=== PATIENT | female | born 1965 | race African-American/Black ===

== ENCOUNTER 2018-06-18 00:05 | Inpatient (IN) | payer OTHER ==
[~2018-06-18] VITALS: Ht 162.6 cm; Wt 133.4 kg
[2018-06-18 00:45] LABS: BASOPHILS # (AUTO) 0.1 (0.0-0.1); BASOPHILS % 0.5 % (0.0-1.0); EOSINOPHILS # (AUTO) 0.1 (0.0-0.4); EOSINOPHILS % 1.1 % (0.0-6.0); LYMPHOCYTES % 17.4 % (18.0-39.1); MEAN CORPUSCULAR HEMOGLOBIN 26.4 pg (28-32); MEAN CORPUSCULAR HGB CONC 31.7 g/dL (31-35); MEAN CORPUSCULAR VOLUME 83.3 fL (81-99); MONOCYTES # (AUTO) 0.6 (0.2-0.8); MONOCYTES % 5.6 % (4.4-11.3); NEUTROPHILS # (AUTO) 8.5 (2.1-6.9); PLATELET COUNT 245 x10e3/uL (140-360); RED BLOOD COUNT 4.92 x10e6/uL (3.6-5.1); RED CELL DISTRIBUTION WIDTH 14.4 % (11.7-14.4)
[2018-06-18] MEDS ORDERED: DICYCLOMINE HCL 20 MG/2 ML VIAL IM ONE (00:45)
[2018-06-18 00:54] LABS: BILIRUBIN,URINE NEGATIVE (NEGATIVE); CLARITY,URINE CLEAR (CLEAR); COLOR,URINE YELLOW (YELLOW); KETONES,URINE NEGATIVE (NEGATIVE); LEUKOCYTE ESTERASE ,URINE NEGATIVE (NEGATIVE); NITRITE,URINE NEGATIVE (NEGATIVE); PROTEIN,URINE DIPSTICK TRACE (NEGATIVE); URINE UROBILINOGEN 4 mg/dL (0.2 - 1)
[2018-06-18] MEDS ORDERED: DIAZEPAM5 MG PO (00:55)
[2018-06-18] MEDS ORDERED: NAPROXEN500 MG PO (00:55)
[2018-06-18] MEDS ORDERED: DESONIDE15 GM TOP (00:55)
[2018-06-18] MEDS ORDERED: ASPIR 8181 MG PO (00:55)
[2018-06-18] MEDS ORDERED: LOSARTAN-HCTZ1 EACH PO (00:55)
[2018-06-18] MEDS ORDERED: MOMETASONE FURO15 G1 PO (00:55)
[2018-06-18] MEDS ORDERED: JENTADUETO 2.51 EACH PO (00:55)
[2018-06-18] MEDS ORDERED: BENADRYL25 M1 PO (00:55)
[2018-06-18 01:00] LABS: WBC,URINE (MAN) 0-5 /HPF (0-5)
[2018-06-18 01:01] LABS: BACTERIA,URINE MODERATE /HPF; EPITHELIAL CELLS,URINE FEW /LPF
[2018-06-18] MEDS ORDERED: ONDANSETRON HCL INJ 2MG/ML 2ML 2 MG/ML VIAL ONE (01:04)
[2018-06-18 01:15] LABS: ALANINE AMINOTRANSFERASE 204 IU/L (0-55); ALBUMIN 3.5 g/dL (3.5-5.0); ALBUMIN/GLOBULIN RATIO 0.9 (0.8-2.0); ALKALINE PHOSPHATASE 336 IU/L (40-150); ANION GAP 14.6 mmol/L (8-16); BLOOD UREA NITROGEN 11 mg/dL (7-26); BUN/CREATININE RATIO 12 (6-25); CALCIUM 9.6 mg/dL (8.4-10.2); CARBON DIOXIDE 25 mmol/L (22-29); CHLORIDE 97 mmol/L (98-107); EST GLOMERULAR FILTRATION RATE > 60 ML/MIN (60-); GLUCOSE 373 mg/dL (74-118); POTASSIUM 5.6 mmol/L (3.5-5.1); SODIUM 131 mmol/L (136-145)
[2018-06-18] MEDS ORDERED: ONDANSETRON HCL INJ 2MG/ML 2ML 2 MG/ML VIAL IV STA (01:27)
[2018-06-18] MEDS ORDERED: SODIUM CHLORIDE 0.9% 1000ML 1,000 ML IV SCH ×2 (01:45→04:31)
[2018-06-18] MEDS ORDERED: INSULIN REGULAR, HUMAN 100 UNIT/1 ML 3ML VIAL IV ONE (01:45)
[2018-06-18] MEDS ORDERED: SOD POLYSTYRENE SULFONATE SUSP 15 GM/60 ML BTL PO ONE (01:45)
[2018-06-18] MEDS ORDERED: SODIUM CHLORIDE 0.9% 50ML 50 ML ONE (01:52)
[2018-06-18] MEDS ORDERED: IOPAMIDOL 370 MG/ML 200 ML INFUS..BTL INJ ONE (01:52)
--- NOTE | 2018-06-18 04:16 | Diagnostic Imaging Report ---
EXAM: CT Abdomen and Pelvis WITH contrast INDICATION: RUQ PAIN, N/V COMPARISON: None. TECHNIQUE: Abdomen and pelvis were scanned utilizing a multidetector helical scanner from the lung base to the pubic symphysis after administration of IV contrast. Coronal and sagittal reformations were obtained. Routine protocol was performed. Scan was performed when during portal venous phase. IV CONTRAST: 100 mL of Isovue-370 ORAL CONTRAST: Water COMPLICATIONS: None RADIATION DOSE: Total DLP: 851.4 mGy*cm Estimated effective dose: (DLP x 0.015 x size factor) mSv Dose modulation, iterative reconstruction, and/or weight based adjustment of the mA/kV was utilized to reduce the radiation dose to as low as reasonably achievable. FINDINGS: LINES and TUBES: None. LOWER THORAX: Unremarkable HEPATOBILIARY: No focal hepatic lesions. No biliary ductal dilation. GALLBLADDER: There are stones in the gallbladder. Possible wall thickening in the proximal body and neck versus lamellated stones. SPLEEN: No splenomegaly. PANCREAS: No focal masses or ductal dilatation. ADRENALS: No adrenal nodules KIDNEYS/URETERS: Kidneys enhance symmetrically. No hydronephrosis. No cystic or solid mass lesions. No stones. GI TRACT: No abnormal distention, wall thickening, or evidence of bowel obstruction. Appendix is normal. PELVIC ORGANS/BLADDER: Unremarkable. LYMPH NODES: No lymphadenopathy. VESSELS: There is mild atherosclerotic disease in the aorta and major arterial branches. PERITONEUM / RETROPERITONEUM: No free air or fluid. BONES: Unremarkable. SOFT TISSUES: Unremarkable. IMPRESSION: 1. Cholelithiasis with possible wall thickening. Given right upper quadrant pain, ultrasound can be obtained for further evaluation. 2. Otherwise, no acute abnormalities. Signed by: DR. Darnell Rincon MD on 06/18/2018 4:13 AM
[2018-06-18] MEDS ORDERED: CEFTRIAXONE SOD 1 GM/NS 50 ML 50 ML IV ONE (04:30)
[2018-06-18 04:43] LABS: AMYLASE 686 U/L (25-125)
[2018-06-18] MEDS ORDERED: SODIUM CHLORIDE 0.9% 1000ML 1,000 ML IV ONE (04:45)
[2018-06-18 04:49] LABS: LIPASE 1893 U/L (8-78)
--- OUTSIDE RECORDS SUMMARY | 2018-06-18 05:58 | XMS REPORT ---
[facility] Address Unknown Phone Unavailable Care Team Providers Care Hone Operator Name Role Phone Abiola GUZMAN Unavailable Unavailable Problems This patient has no known problems. Allergies, Adverse Reactions, Alerts This patient has no known allergies or adverse reactions. Medications This patient has no known medications. Encounters Start Date/Time End Date/Time Encounter Type Admission Type Attending [facility] Care Department Encounter ID 2017-12-14 00:00:00 2017-12-14 00:00:00 Outpatient [facility] [id number] 2017-12-07 00:00:00 2017-12-07 00:00:00 Outpatient [facility] [id number] 2017-12-04 00:00:00 2017-12-04 00:00:00 Outpatient [facility] [id number] 2017-08-17 00:00:00 2017-08-17 00:00:00 Outpatient [facility] [id number] 2017-07-25 00:00:00 2017-07-25 00:00:00 Outpatient [facility] [id number] 2017-07-08 08:10:08 2017-07-08 08:10:08 Outpatient [facility] [id number] 2017-07-07 13:03:42 2017-07-07 13:03:42 Outpatient [facility] [id number] 2017-07-07 00:00:00 2017-07-07 00:00:00 Outpatient [facility] [id number] 2017-06-21 07:22:30 2017-06-21 07:22:30 Outpatient [facility] [id number] 2017-06-15 00:00:00 2017-06-15 00:00:00 Outpatient [facility] [id number] 2017-05-30 13:03:54 2017-05-30 13:03:54 Outpatient [facility] [id number] 2017-05-23 15:21:42 2017-05-23 15:21:42 Outpatient [facility] [id number] 2017-05-09 07:19:13 2017-05-09 07:19:13 Outpatient [facility] [id number] 2017-05-09 00:00:00 2017-05-09 00:00:00 Outpatient [facility] [id number] 2017-05-02 07:23:51 2017-05-02 07:23:51 Outpatient [facility] [id number] 2017-04-30 07:25:18 2017-04-30 07:25:18 Outpatient [facility] [id number] 2017-04-27 00:00:00 2017-04-27 00:00:00 Outpatient [facility] [id number] 2017-04-12 15:46:05 2017-04-12 15:46:05 Outpatient [facility] [id number] 2017-04-06 14:52:06 2017-04-06 14:52:06 Outpatient [facility] [id number] 2017-04-06 00:00:00 2017-04-06 00:00:00 Outpatient [facility] [id number] 2017-04-05 07:20:03 2017-04-05 07:20:03 Outpatient [facility] [id number] 2017-03-31 10:15:55 2017-03-31 10:15:55 Outpatient [facility] [id number] 2017-03-24 07:24:01 2017-03-24 07:24:01 Outpatient [facility] [id number] 2017-02-08 07:22:01 2017-02-08 07:22:01 Outpatient [facility] [id number] 2017-01-17 15:46:59 2017-01-17 15:46:59 Outpatient [facility] [id number] Results Test Description Test Time Test Comments Text Results Atomic Results Result Comments CT ABDOMEN/PELVIS W 2018-06-18 04:01:00 [place] [address] Patient Name: ROXIE FARR MR #: [id number] : 1965 Age/Sex: 53/F Req #: [id number] Adm Physician: Ordered by: ROBINSON GUZMAN MD Report #: [id number] Location: ER Room/Bed: Procedure: [id number] CT/CT ABDOMEN/PELVIS W Exam Date: 06/18/18 Exam Time: 0303 REPORT STATUS: Signed EXAM: CT Abdomen and Pelvis WITH contrast INDICAT ION: RUQ PAIN, N/V COMPARISON: None. TECHNIQUE: Abdomen and pelvis were scanned utilizing a multidetector helical scanner from the lung base to the pubic symphysis after administration of IV contrast. Coronal and sagittal reformations were obtained. Routine protocol was performed. Scan was performed when during portal venous phase. IV CONTRAST: 100 mL of Isovue-370 ORAL CONTRAST: Water COMPLICATIONS: None RADIATION DOSE: Total DLP: 851.4 mGy*cm Estimated effective dose: (DLP x 0.015 x size factor) mSv Dose modulation, iterative reconstruction, and/or weight based adjustment of the mA/kV was utilized to reduce the radiation dose to as low as reasonably achievable. FINDINGS: LINES and TUBES: None. LOWER THORAX: Unremarkable HEPATOBILIARY: No focal hepatic lesions. No biliary ductal dilation. GALLBLADDER: There are stones in the gallbladder. Possible wall thickening in the proximal body and neck versus lamellated stones. SPLEEN: No splenomegaly. PANCREAS: No focal masses or ductal dilatation. ADRENALS: No adrenal nodules KIDNEYS/URETERS: Kidneys enhance symmetrically. No hydronephrosis. No cystic or solid mass lesions. No stones. GI TRACT: No abnormal distention, wall thickening, or evidence of bowel obstruction. Appendix is normal. P ELVIC ORGANS/BLADDER: Unremarkable. LYMPH NODES: No lymphadenopathy. VESSELS: There is mild atherosclerotic disease in the aorta and major arterial branches. PERITONEUM / RETROPERITONEUM: No free air or fluid. BONES: Unremarkable. SOFT TISSUES: Unremarkable. IMPRESSION: 1. Cholelithiasis with possible wall thickening. Given right upper quadrant pain, ultrasound can be obtained for further evaluation. 2. Otherwise, no acute abnormalities. Signed by: DR. Darnell Lyles MD on 06/18/2018 4:13 AM Dictated By: DARNELL LYLES MD 2 Transcribed By: JOAQUÍN on 06/18/18412 COPY TO: ROBINSON GUZMAN MD
[2018-06-18] MEDS ORDERED: DEXTROSE 50% SYRINGE 50 ML IV PRN (07:15)
[2018-06-18] MEDS: INSULIN REGULAR, HUMAN 100 UNIT/1 ML 3ML VIAL SQ SCH ×4 (08:02→21:30)
[2018-06-18] MEDS: DEXTROSE 5%/0.45% SOD CHL 1,000 ML IV SCH ×3 (08:09→20:30)
[2018-06-18] MEDS ORDERED: PIPER-TAZ 3.375 GM 50 ML IV SCH (08:15)
[2018-06-18] MEDS ORDERED: METRONIDAZOLE 500MG/NS 100ML 100 ML IV SCH ×2 (08:15→16:00)
[2018-06-18] MEDS ORDERED: HCTZ PO SCH ×2 (09:00)
[2018-06-18] MEDS ORDERED: METFORMIN HCL PO SCH (09:00)
[2018-06-18] MEDS ORDERED: LOSARTAN PO SCH ×2 (09:00)
[2018-06-18] MEDS ORDERED: [UNRECOGNIZED DRUG - OTHER] PO SCH (09:00)
[2018-06-18] MEDS ORDERED: METFORMIN PO SCH (09:00)
[2018-06-18] MEDS ORDERED: LINAGLIPTIN PO SCH ×2 (09:00)
--- NOTE | 2018-06-18 09:27 | Diagnostic Imaging Report ---
EXAM: Right upper quadrant abdominal ultrasound INDICATION: Abdominal pain. COMPARISON: CT abdomen/pelvis 06/18/2018. TECHNIQUE: Transverse and longitudinal images of the right upper quadrant abdomen were obtained FINDINGS: Liver: Size: Measures 16.5 cm in the right midclavicular line, normal Appearance: Normal echogenicity, smooth contour Mass: No focal masses Gallbladder: There are multiple stones in the neck and fundus, largest measuring up to 2.0 cm. No distension, pericholecystic fluid, or reported sonographic Duncan's sign. Gallbladder wall measures 0.3 cm. Bile Ducts: Intrahepatic Ducts: No dilatation Extrahepatic Ducts: Common bile duct measures 0.4 cm, no dilatation Pancreas: Visualized portions of the pancreas appear unremarkable. Kidney: The right kidney measures 10.1 cm without evidence of hydronephrosis or stone. Vessels: Aorta: Visualized portions are normal Inferior Vena Cava: Visualized portions are normal Main Portal Vein: 1.3 cm, normal size with hepatopetal flow. Free Fluid: No evidence of ascites. IMPRESSION: Cholelithiasis without sonographic evidence of cholecystitis. Hepatomegaly. Signed by: Dr. Celso Joe MD on 06/18/2018 9:24 AM
[2018-06-18] MEDS ORDERED: GADOBENATE DIMEGLUMINE 1 ML IV ONE (09:35)
--- NOTE | 2018-06-18 11:05 | Diagnostic Imaging Report ---
MRCP WITH AND WITHOUT CONTRAST History: Evaluate for choledocholithiasis. Comparison: None. Technique: Multiplanar, multisequence images of the abdomen were obtained per MRCP protocol. 3D volume rendered reformation images of the biliary tree were performed. Intravenous gadolinium was administered. Findings: Exam is limited by motion, particularly post-contrast studies. Biliary tree: The hepatic and extrahepatic biliary ducts, common bile duct and the pancreatic duct appear normal. No evidence of biliary ductal dilatation. There are multiple stones in the gallbladder, measuring up to 2.3 cm. No evidence of choledocholithiasis. Pancreas duct: Not dilated. Liver: No evidence of mass. Spleen: No splenomegaly. Normal signal. No evidence of mass. Pancreas: Normal signal. No evidence of mass, although evaluation is limited. Kidneys: No hydronephrosis. Adrenal glands: No evidence for mass. Lymph nodes: No lymphadenopathy. Bowel: The stomach and visualized portions of the small bowel and large bowel are normal in diameter normal wall thickness. Vasculature: Aorta and IVC are normal in morphology. Bones/Soft tissues: No focal osseous lesions. IMPRESSION: Exam is limited by motion, particularly post-contrast images. No evidence of choledocholithiasis or biliary ductal dilatation. Cholelithiasis without MRI evidence of cholecystitis. Signed by: Dr. Celso Joe MD on 06/18/2018 7:54 PM
--- NOTE | 2018-06-18 11:07 | NUR ---
BEDSIDE REPORT TO MEREDITH Akers
--- NOTE | 2018-06-18 11:19 | NUR ---
PATIENTS BRINGING IN HOME MEDS
--- NOTE | 2018-06-18 11:26 | NUR ---
DR. BARBOSA IN E.R. EVALUATING PATIENT
--- NOTE | 2018-06-18 12:28 | NUR ---
Patient admitted to unit from ER. patient is AAOx3. patient has been c/o abdominal pain for 2 weeks with no relief. Patient has had some nausea and vomiting. Lung womack clear to auscultation. Bowel sounds hypoactive with some tenderness when palpated. No edema noted. Right AC IV in place. Patient is NPO at this time. Patient can ambulate on her own and assistance
[2018-06-18] MEDS ORDERED: DIAZEPAM 5 MG TAB PO PRN (12:45)
[2018-06-18 12:46] VITALS: BP 141/66
[2018-06-18 12:50] VITALS: BP 141/66
[2018-06-18] MEDS: LOSARTAN POTASSIUM 100 MG TAB PO SCH (14:50)
[2018-06-18] MEDS: HYDROCHLOROTHIAZIDE 25 MG TAB PO SCH (14:51)
[2018-06-18] MEDS: PIPER-TAZ 3.375 GM 50 ML IV SCH ×2 (15:19→21:30)
[2018-06-18] MEDS: HYDROMORPHONE 2MG/ML 2 MG/ML ML IV PRN (16:25)
[2018-06-18] MEDS: ONDANSETRON HCL INJ 2MG/ML 2ML 2 MG/ML VIAL IV PRN (16:25)
[2018-06-18] MEDS: LINAGLIPTIN PO SCH (17:00)
[2018-06-18] MEDS: METFORMIN PO SCH (17:00)
[2018-06-18 17:25] VITALS: BP 154/66
[2018-06-18] MEDS: FAMOTIDINE 20 MG/2 ML VIAL IV SCH ×2 (17:48→17:55)
[2018-06-18 20:00] VITALS: BP 131/77
--- NOTE | 2018-06-18 21:41 | NUR ---
OK TO CONTINUE HOME MED BENADRYL PER JOAQUINA DEWITT NP.
[2018-06-18] MEDS: METRONIDAZOLE 500MG/NS 100ML 100 ML IV SCH (22:00)
[2018-06-18] MEDS: DIPHENHYDRAMINE HCL 25 MG CAP PO PRN (22:02)
--- NOTE | 2018-06-18 23:46 | Consultation ---
DATE OF CONSULTATION: 06/18/2018 Consultation Note CHIEF COMPLAINT: Abdominal pain. HISTORY OF PRESENT ILLNESS: The patient is a 53-year-old female with one-day history of epigastric abdominal pain, radiating to the back with nausea and vomiting. No fever, chills, or diarrhea. PAST MEDICAL HISTORY: Positive for similar pain in the last few weeks, which is milder. History of hypertension and diabetes. SURGICAL HISTORY: . ALLERGIES: SHE HAS NO DRUG ALLERGIES. SOCIAL HISTORY: She does not smoke or drink. REVIEW OF SYSTEMS: No chest pain or shortness of breath. No cough. PHYSICAL EXAMINATION: VITAL SIGNS: Stable and afebrile. GENERAL: The patient is awake and alert, in mild discomfort. HEENT: Sclerae are anicteric. NECK: Supple. LUNGS: Clear. HEART: Regular rate and rhythm. ABDOMEN: Soft with some guarding and tenderness in the right upper quadrant without rebound. EXTREMITIES: No cyanosis or edema. LABORATORY DATA: White cell count is 12, hemoglobin 13, and platelet count 254. Creatinine of 0.9. Liver function tests elevated at transaminase at 330, alkaline phosphatase 336, and bilirubin of 1.1. Lipase is 1893. Amylase 686. Ultrasound showed gallstones with bile duct size 0.4. MRCP showed no bile duct stones. CT abdomen, some gallstone with wall thickening. ASSESSMENT: Gallstone pancreatitis. PLAN: Laparoscopic cholecystectomy once pancreatitis resolves. MD SHAHID Samayoa/JEROD /[id number]
[2018-06-19] VITALS (8 sets, daily range): BP systolic 131–177; BP diastolic 63–83
[2018-06-19] MEDS: PIPER-TAZ 3.375 GM 50 ML IV SCH ×4 (03:16→20:48)
[2018-06-19] MEDS: METRONIDAZOLE 500MG/NS 100ML 100 ML IV SCH ×3 (05:38→21:33)
[2018-06-19 06:49] LABS: BASOPHILS # (AUTO) 0.1 (0.0-0.1); BASOPHILS % 0.5 % (0.0-1.0); EOSINOPHILS # (AUTO) 0.4 (0.0-0.4); EOSINOPHILS % 3.8 % (0.0-6.0); HEMATOCRIT 36.3 % (34.2-44.1); HEMOGLOBIN 11.4 g/dL (12.0-16.0); LYMPHOCYTES # (AUTO) 4.3 (1.0-3.2); LYMPHOCYTES % 43.4 % (18.0-39.1); MEAN CORPUSCULAR HEMOGLOBIN 26.1 pg (28-32); MEAN CORPUSCULAR HGB CONC 31.4 g/dL (31-35); MEAN CORPUSCULAR VOLUME 83.3 fL (81-99); MONOCYTES # (AUTO) 0.5 (0.2-0.8); MONOCYTES % 5.4 % (4.4-11.3); NEUTROPHILS # (AUTO) 4.6 (2.1-6.9); NEUTROPHILS % 46.4 % (38.7-80.0); PLATELET COUNT 215 x10e3/uL (140-360); RED BLOOD COUNT 4.36 x10e6/uL (3.6-5.1); RED CELL DISTRIBUTION WIDTH 14.6 % (11.7-14.4)
[2018-06-19] MEDS: DEXTROSE 5%/0.45% SOD CHL 1,000 ML IV SCH ×3 (07:15→23:15)
[2018-06-19 07:19] LABS: INR 1.06; PROTHROMBIN TIME 14.3 seconds (11.9-14.5)
[2018-06-19] MEDS: INSULIN REGULAR, HUMAN 100 UNIT/1 ML 3ML VIAL SQ SCH ×4 (07:30→20:48)
[2018-06-19 07:32] LABS: ALANINE AMINOTRANSFERASE 154 IU/L (0-55); ALBUMIN 2.9 g/dL (3.5-5.0); ALKALINE PHOSPHATASE 259 IU/L (40-150); ANION GAP 10.6 mmol/L (8-16); BLOOD UREA NITROGEN 6 mg/dL (7-26); BUN/CREATININE RATIO 8 (6-25); CALCIUM 8.7 mg/dL (8.4-10.2); CARBON DIOXIDE 27 mmol/L (22-29); CHLORIDE 103 mmol/L (98-107); CREATININE, SERUM 0.73 mg/dL (0.57-1.11); EST GLOMERULAR FILTRATION RATE > 60 ML/MIN (60-); GLUCOSE 146 mg/dL (74-118); POTASSIUM 3.6 mmol/L (3.5-5.1); SODIUM 137 mmol/L (136-145)
[2018-06-19 07:57] LABS: AMYLASE 59 U/L (25-125); LIPASE 15 U/L (8-78)
[2018-06-19] MEDS: LINAGLIPTIN PO SCH ×2 (08:00→16:39)
[2018-06-19] MEDS: METFORMIN PO SCH ×2 (08:00→16:39)
[2018-06-19] MEDS: LOSARTAN POTASSIUM 100 MG TAB PO SCH (09:00)
[2018-06-19] MEDS: HYDROCHLOROTHIAZIDE 25 MG TAB PO SCH (09:00)
[2018-06-19] MEDS ORDERED: BUPIVACAINE 0.5%/EPI 30 ML SDV INJ ONE (09:36)
--- NOTE | 2018-06-19 09:44 | NUR ---
Patient alert and responsive, seen by Dr. Nelson this and orders for consent for procedure, patient signed consent for procedure and is picked up now for procedure
[2018-06-19] MEDS ORDERED: MIDAZOLAM HCL 2 MG/2 ML VIAL ONE (13:27)
[2018-06-19] MEDS ORDERED: FENTANYL CITRATE/PF 100MCG/2 ML INJ ONE (13:27)
[2018-06-19] MEDS: ONDANSETRON HCL INJ 2MG/ML 2ML 2 MG/ML VIAL IV PRN ×2 (13:53→17:50)
[2018-06-19] MEDS: HYDROMORPHONE 2MG/ML 2 MG/ML ML IV PRN (14:03)
--- NOTE | 2018-06-19 14:26 | NUR ---
Patient arrived from PACU, alert and responsive, VSS, medicated with Dilaudid as ordered and had an episode of vomiting, medicated with Zofran, call to attending for alternative pain med.
--- NOTE | 2018-06-19 15:00 | NUR ---
Patient OOB to bathroom and had some blood sipping out from incision site, called Dr. mcallister and was notified and stated will monitor
[2018-06-19] MEDS ORDERED: ACETAMINOPHEN 1000 MG/100 ML IV ONE (15:09)
[2018-06-19] MEDS ORDERED: DEXAMETHASONE SOD PHOS INJ 4 MG/ML VIAL ONE (15:09)
[2018-06-19] MEDS ORDERED: ROCURONIUM BROMIDE 10 MG/ML 5ML VIAL ONE (15:09)
[2018-06-19] MEDS ORDERED: ONDANSETRON HCL INJ 2MG/ML 2ML 2 MG/ML VIAL ONE (15:09)
[2018-06-19] MEDS ORDERED: SEVOFLURANE INHAL SOLN 250 ML PEN BTL ONE (15:09)
[2018-06-19] MEDS ORDERED: LIDOCAINE HCL 2% LOCAL INJ 5 ML SDV VIAL INJ ONE (15:09)
[2018-06-19] MEDS ORDERED: SUCCINYLCHOLINE 200 MG/10 ML SYR ONE (15:09)
[2018-06-19] MEDS ORDERED: PROPOFOL IV EMULSION 10 MG/ML 20 ML VIAL ONE (15:09)
[2018-06-19] MEDS ORDERED: MORPHINE SULFATE INJ 4 MG/ML INJ 1ML IV PRN (15:15)
[2018-06-19] MEDS ORDERED: HYDRALAZINE HCL 20 MG/ML VIAL IV PRN (15:15)
--- NOTE | 2018-06-19 15:16 | NUR ---
Call to attending MAINTENANCE MAN and orders in place for better control of BP and d/c dilaudid due to vomitting and add [place] PRN. Patient in bed resting at this time
[2018-06-19] MEDS: FAMOTIDINE 20 MG/2 ML VIAL IV SCH (16:02)
[2018-06-19] MEDS: DIPHENHYDRAMINE HCL 25 MG CAP PO PRN (17:55)
--- NOTE | 2018-06-19 20:41 | Operative Report ---
DATE OF PROCEDURE: 06/19/2018 SURGEON: Shelton Nelson MD PREOPERATIVE DIAGNOSES: Cholelithiasis and cholecystitis. POSTOPERATIVE DIAGNOSES: Cholelithiasis and cholecystitis. OPERATIVE PROCEDURE: Laparoscopic cholecystectomy. ANESTHESIA: General, Dr. Price. INDICATION: A 53-year-old female with epigastric pain and vomiting with elevated lipase. The patient's MRCP was negative. Ultrasound showed gallstones. The patient consented for laparoscopic cholecystectomy. Attendant risks discussed. PROCEDURE FINDING: Chronic cholecystitis with gallstones. DESCRIPTION OF PROCEDURE: The patient brought to the OR, intubated, abdomen prepped with alcohol and draped in sterile fashion. An infraumbilical incision was made and a 5 mm port inserted, insufflation then began. Under direct vision, another port placed in the midepigastric right upper quadrant. Gallbladder chronically inflamed and distended. Fundus retracted in cephalad direction. Next, the gallbladder retracted laterally with blunt and sharp dissection. We isolated cystic artery, triple clipped, and divided. Cystic duct dissected out and is noted to be dilated to approximately 7-8 mm. It is controlled with Endo-DIMA stapler blue load approximately a centimeter from the common bile duct. The gallbladder detached from the liver and placed in an Endopouch and retrieved out of the peritoneal cavity. Operative field irrigated, hemostasis was achieved. A 15-Setswana Robel drain placed in Morison pouch and taking it out right upper quadrant port site. All other ports removed under direct vision. Fascial closure with 0 Vicryl. Skin closed with subcuticular stitch. The patient was extubated and transported to recovery room. ESTIMATED BLOOD LOSS: 20 mL. Shelton Nelson MD DNL/MODL /[id number]
[2018-06-19] MEDS: HYDROCODONE/APAP 5MG-325MG TAB PO PRN (23:44)
[2018-06-20] VITALS (8 sets, daily range): BP systolic 128–157; BP diastolic 63–71
[2018-06-20] MEDS: PIPER-TAZ 3.375 GM 50 ML IV SCH ×4 (03:00→20:18)
[2018-06-20 04:19] LABS: BASOPHILS # (AUTO) 0.1 (0.0-0.1); BASOPHILS % 0.5 % (0.0-1.0); EOSINOPHILS # (AUTO) 0.1 (0.0-0.4); EOSINOPHILS % 0.6 % (0.0-6.0); HEMATOCRIT 34.1 % (34.2-44.1); LYMPHOCYTES # (AUTO) 3.8 (1.0-3.2); LYMPHOCYTES % 33.2 % (18.0-39.1); MEAN CORPUSCULAR HEMOGLOBIN 26.4 pg (28-32); MEAN CORPUSCULAR HGB CONC 32.3 g/dL (31-35); MONOCYTES # (AUTO) 0.7 (0.2-0.8); MONOCYTES % 6.1 % (4.4-11.3); NEUTROPHILS # (AUTO) 6.7 (2.1-6.9); NEUTROPHILS % 59.1 % (38.7-80.0); PLATELET COUNT 215 x10e3/uL (140-360); RED BLOOD COUNT 4.16 x10e6/uL (3.6-5.1); RED CELL DISTRIBUTION WIDTH 14.4 % (11.7-14.4)
[2018-06-20] MEDS: HYDROCODONE/APAP 5MG-325MG TAB PO PRN ×2 (04:21→21:20)
[2018-06-20] MEDS: METRONIDAZOLE 500MG/NS 100ML 100 ML IV SCH ×3 (05:54→22:00)
[2018-06-20 06:50] LABS: ALANINE AMINOTRANSFERASE 223 IU/L (0-55); ALBUMIN 2.9 g/dL (3.5-5.0); ALKALINE PHOSPHATASE 346 IU/L (40-150); ANION GAP 11.4 mmol/L (8-16); BILIRUBIN,DIRECT 0.6 mg/dL (0.0-0.5); BLOOD UREA NITROGEN 8 mg/dL (7-26); BUN/CREATININE RATIO 10 (6-25); CARBON DIOXIDE 25 mmol/L (22-29); CHLORIDE 102 mmol/L (98-107); CREATININE, SERUM 0.83 mg/dL (0.57-1.11); EST GLOMERULAR FILTRATION RATE > 60 ML/MIN (60-); GLUCOSE 162 mg/dL (74-118); LIPASE 472 U/L (8-78); MAGNESIUM 1.5 MG/DL (1.3-2.1); POTASSIUM 3.4 mmol/L (3.5-5.1); SODIUM 135 mmol/L (136-145)
[2018-06-20] MEDS: METFORMIN PO SCH ×2 (08:00→16:37)
[2018-06-20] MEDS: LINAGLIPTIN PO SCH ×2 (08:00→16:37)
[2018-06-20] MEDS: DEXTROSE 5%/0.45% SOD CHL 1,000 ML IV SCH (08:54)
[2018-06-20] MEDS ORDERED: AMLODIPINE BESYLATE 10 MG TAB PO SCH (09:00)
[2018-06-20] MEDS: HYDROCHLOROTHIAZIDE 25 MG TAB PO SCH (09:00)
[2018-06-20] MEDS: LOSARTAN POTASSIUM 100 MG TAB PO SCH (09:00)
[2018-06-20] MEDS: FAMOTIDINE 20 MG/2 ML VIAL IV SCH ×2 (09:08→16:37)
[2018-06-20] MEDS ORDERED: POTASSIUM CHLORIDE 20 MEQ TAB CR PO ONE (09:15)
--- NOTE | 2018-06-20 11:20 | NUR ---
Patient OOB and ambulated, VSS and no c/o pains, tolerated clear liq diet,no N/V noted, call to Dr. Nelson for possible upgrade of diet and waiting for call back.
[2018-06-20] MEDS: INSULIN LISPRO 100 UNIT/1 ML 3ML VIAL SQ SCH ×3 (11:30→20:18)
--- NOTE | 2018-06-20 16:23 | NUR ---
Nutrition Screen Note RD Recommendation for Physician: - Rec advancing to low fat/ ADA diet as medically appropriate - RD provided low-fat diet education on 06/20. Plan of Care: RD following, monitoring for tolerance and adequacy Nutrition reason for involvement: Nutrition Risk Trigger MST Primary Diagnose(s): Gallstone pancreatitis PMH: DM, HTN Ht: 64in Wt: 281.06lb BMI: 48.2kg/m2 IBW: 120lb RD Assessment: (06/20) Chart reviewed. Labs and meds reviewed. 53yo F, who was admitted for abdominal pain with nausea and vomiting. S/p laparoscopic cholecystectomy. POD 1. Visited pt in room who denied significant wt loss, denied decrease in appetite TELEMETRY REGISTERED NURSE. Pt denied chewing/swallowing problems. No complain of nausea/vomiting after surgery. Pt reports feeling hungry and tolerating clear liquid diet. Anticipate pt able to meet nutritional need through po intake when diet is advanced. Will cont to monitor. Please consult as needed. Current Diet: bariatric clear liquid Malnutrition Evaluation (06/20) The patient does not meet criteria for a specified degree of malnutrition at this time. Will re-evaluate at follow-up as appropriate. Diet Education Needs Assessment: Diet education indicated, pt was agreeable with plan. Learner(s): pt Time spent: 15mins Barriers: No barriers identified. Cultural/Language Modifications: No cultural/language modifications noted. Pt speaks Lithuanian. Readiness: Pt eager to learn. Method: Handouts, explanation Topics: low fat diet Understanding/Compliance: Expect good understanding/compliance from pt. Will benefit from reinforcement. All questions have been answered. Nutrition Care Level: low Signed: Cony Lin, MS, RD, LD
--- NOTE | 2018-06-20 19:05 | NUR ---
Rounds by Dr. Nelson and orders to start patient on GI soft diet, no N/V today
[2018-06-20] MEDS: DIPHENHYDRAMINE HCL 25 MG CAP PO PRN (20:18)
[2018-06-21] VITALS: BP 146/65
[2018-06-21] MEDS: DEXTROSE 5%/0.45% SOD CHL 1,000 ML IV SCH (00:34)
[2018-06-21] MEDS: PIPER-TAZ 3.375 GM 50 ML IV SCH ×2 (03:00→08:43)
[2018-06-21 03:48] LABS: BASOPHILS # (AUTO) 0.1 (0.0-0.1); BASOPHILS % 0.6 % (0.0-1.0); EOSINOPHILS # (AUTO) 0.4 (0.0-0.4); EOSINOPHILS % 4.1 % (0.0-6.0); HEMATOCRIT 36.1 % (34.2-44.1); HEMOGLOBIN 11.4 g/dL (12.0-16.0); LYMPHOCYTES % 43.1 % (18.0-39.1); MEAN CORPUSCULAR HEMOGLOBIN 26.1 pg (28-32); MEAN CORPUSCULAR HGB CONC 31.6 g/dL (31-35); MEAN CORPUSCULAR VOLUME 82.6 fL (81-99); MONOCYTES # (AUTO) 0.5 (0.2-0.8); MONOCYTES % 5.7 % (4.4-11.3); NEUTROPHILS # (AUTO) 4.3 (2.1-6.9); PLATELET COUNT 213 x10e3/uL (140-360); RED BLOOD COUNT 4.37 x10e6/uL (3.6-5.1); RED CELL DISTRIBUTION WIDTH 14.6 % (11.7-14.4)
[2018-06-21 04:00] VITALS: BP 164/73
[2018-06-21 04:11] LABS: ALANINE AMINOTRANSFERASE 144 IU/L (0-55); ALKALINE PHOSPHATASE 287 IU/L (40-150); ANION GAP 11.3 mmol/L (8-16); BILIRUBIN,DIRECT 0.4 mg/dL (0.0-0.5); BLOOD UREA NITROGEN 7 mg/dL (7-26); BUN/CREATININE RATIO 9 (6-25); CALCIUM 7.9 mg/dL (8.4-10.2); CARBON DIOXIDE 23 mmol/L (22-29); CHLORIDE 103 mmol/L (98-107); EST GLOMERULAR FILTRATION RATE > 60 ML/MIN (60-); GLUCOSE 159 mg/dL (74-118); LIPASE 20 U/L (8-78); MAGNESIUM 1.6 MG/DL (1.3-2.1); POTASSIUM 3.3 mmol/L (3.5-5.1); SODIUM 134 mmol/L (136-145)
[2018-06-21] MEDS: METRONIDAZOLE 500MG/NS 100ML 100 ML IV SCH (05:37)
[2018-06-21] MEDS: INSULIN LISPRO 100 UNIT/1 ML 3ML VIAL SQ SCH ×2 (07:30→11:30)
[2018-06-21] MEDS: METFORMIN PO SCH (08:00)
[2018-06-21] MEDS: LINAGLIPTIN PO SCH (08:00)
[2018-06-21 08:02] VITALS: BP 142/93
[2018-06-21 08:41] VITALS: BP 142/93
[2018-06-21] MEDS: HYDROCHLOROTHIAZIDE 25 MG TAB PO SCH (08:43)
[2018-06-21] MEDS: FAMOTIDINE 20 MG/2 ML VIAL IV SCH (08:43)
[2018-06-21] MEDS: LOSARTAN POTASSIUM 100 MG TAB PO SCH (08:43)
[2018-06-21] MEDS ORDERED: ACETAMINOPHEN 325 MG TAB PO PRN (08:45)
[2018-06-21 09:10] LABS: ANISOCYTOSIS SLIGHT; BLAST CELLS % MANUAL 2; EOSINOPHILS % (MANUAL) 2 % (0-7); LYMPHOCYTES % (MANUAL) 47 % (19-48); MONOCYTES % (MANUAL) 5 % (3.4-9.0); NEUTROPHILS % (MANUAL) 42 % (40-74)
[2018-06-21 09:11] LABS: HYPOCHROMASIA SLIGHT; PLATELET ESTIMATE ADEQUATE; PLATELET MORPHOLOGY COMMENT NORMAL; RBC MORPHOLOGY COMMENT NORMAL
[2018-06-21] MEDS ORDERED: ZOFRAN4 MG PO (09:11)
[2018-06-21] MEDS ORDERED: TYLENOL # 31 EA PO (09:11)
[2018-06-21] MEDS ORDERED: POTASSIUM CHLORIDE 20 MEQ TAB CR PO ONE (09:30)
[2018-06-21 12:05] VITALS: BP 136/65
--- NOTE | 2018-06-21 14:19 | NUR ---
spoke with md mcallister regarding dc. states to remove rocky drain and pt is ok to follow up with [facility]. orders received
--- NOTE | 2018-06-21 14:41 | NUR ---
rocky drain dc dressing to side applied and taped. iv dc pressure applied at tapped. discharge instructions given. pt verbalized understanding . understands follow up visit. pt is ready for dc, waiting in ride at this time
--- NOTE | 2018-06-21 14:57 | NUR ---
pt off unit to home
--- NOTE | 2018-06-23 02:58 | Discharge Summary ---
ADMISSION DIAGNOSES: Gallstone pancreatitis, choledocholithiasis, calculus, acute cholecystitis, hypertension, and type 2 diabetes. DISCHARGE DIAGNOSES: Gallstone pancreatitis, rule out choledocholithiasis status post lap linus, calculus, hypertension, type 2 diabetes, and cholelithiasis. HISTORY: The patient has a history of type 2 diabetes and hypertension. SURGICAL HISTORY: x2. SOCIAL HISTORY: The patient denies alcohol, tobacco, or illicit drug use. HOSPITAL COURSE: A 53-year-old female with upper abdominal pain with nausea and vomiting for 24 hours. On admission, ultrasound of the gallbladder showed cholelithiasis without evidence of cholecystitis. CT of the abdomen showed cholelithiasis with possible wall thickening, otherwise no abnormalities. MRCP showed no evidence of choledocholithiasis or biliary duct dilatation. On 06/19/2018, patient had a lap linus with no complications. Urine culture was contaminated. Vital signs stable, patient afebrile. After the surgery, the patient's pain was controlled and her diet was advanced. The patient is ready to go home and has been cleared for discharge by Surgery. She will follow up with primary care in 1 to 2 weeks and Surgery in 1 to 2 weeks as well. The patient understands discharge instructions and agrees to plan. Dictated by Daysi Jones NP MD MONAE Cruz/JEROD /[id number]
== END 2018-06-21 14:48 | disposition home or self-care (01) | DRG 418 ==
LOC: ER 00:05 → INTOOBSV 05:55 → OBSVTOIN 05:55 → ERHOLD 05:55 → MED/SURG 12:28 → OBSVTOIN 12:52
PROVIDERS: ADMIT Internal Medicine; ATTEND Internal Medicine
PROC: 0FT44ZZ Resection of Gallbladder, Percutaneous Endoscopic Approach (ICD-10-PCS; principal; 2018-06-19 10:55)
DX: K85.10 Biliary acute pancreatitis without necrosis or infection (principal); K80.10 Calculus of gallbladder with chronic cholecystitis without obstruction; E11.9 Type 2 diabetes mellitus without complications; I10 Essential (primary) hypertension; R74.0 Nonspecific elevation of levels of transaminase and lactic acid dehydrogenase [LDH]
CPT/HCPCS: 36415; 74177; 74183; 76705; 80048; 80053; 80076; 81001; 82150; 82948; 83036; 83605; 83690; 83735; 83880; 85025; 85610; 87086; 88304; 96374; 99284; J0360; J0500; J0696; J1100; J2001; J2250; J2405; J2543; J7030; Q9967